=== PATIENT | male | born 1995 | race Caucasian/White ===

== ENCOUNTER 2016-09-14 22:55 | Emergency (ER) | payer OTHER ==
[~2016-09-14] VITALS: Ht 180.3 cm; Wt 68.4 kg
[2016-09-14 22:59] VITALS: TEMP 37.1; Ht 180.3 cm; Wt 68.4 kg
[2016-09-14] MEDS ORDERED: ONDANSETRON INJ 2 MG/ML 2 ML VIAL IV STA (23:12)
[2016-09-14] MEDS ORDERED: SODIUM CHLORIDE 0.9% 1000ML 1,000 ML IV STA (23:12)
[2016-09-14] MEDS ORDERED: MoRPHine SULFATE 10 MG/ML CARP/VIAL IV STA (23:12)
[2016-09-14] MEDS ORDERED: ACETAMINOPHEN 500 MG TAB PO STA (23:14)
[2016-09-14 23:20] LABS: BASO % 0.1 %; BASO ABS # 0.01 K/uL (0-0.2); COMPLETE YES; EOS % 0.2 %; HEMATOCRIT 46.5 % (42-52); IG% 0.1 %; LYMPH ABS # 0.41 K/uL (1.2-3.4); MEAN CELL VOLUME 85.6 fL (80-100); MEAN CORPUSCULAR HEMOGLOBIN 30.8 pg (25-34); MEAN CORPUSCULAR HGB CONC 35.9 g/dl (32-36); MONO % 4.4 %; NEUT % 91.2 %; PLATELET COUNT 188 K/uL (130-400); RED BLOOD COUNT 5.43 M/uL (4.7-6.1); WHITE BLOOD COUNT 10.34 K/uL (4.8-10.8)
--- NOTE | 2016-09-14 23:27 | EMERGENCY ROOM VISIT NOTE ---
History Report prepared by Vicki: Brea Mcfarland Under the Supervision of: Dr. Serjio Ewing M.D. First contact with patient: 23:07 Chief Complaint: ABDOMINAL PAIN Stated Complaint: STOMACH PAIN, BACK PAIN, VOMITING, SORE THROAT Nursing Triage Summary: Reports abdiminal pain, nausea since 1800 tonight History of Present Illness The patient is a 21 year old male who presents to the Emergency Room with complaints of constant abdominal pain beginning 5 hours ago. The patient states that his pain is in the center of his abdomen and radiates into his back. He complains of diarrhea, vomiting, sorethroat that started last night, nausea, and feeling hot. He denies any swelling in the legs, rash, fall or injury, and loss of consciousness. The patient notes that he has not taken his fever but thinks that he may have one. He states that he took Tylenol tonight and two people on his floor has been sick and vomiting. He reports that he has previously had appendicitis. Source of History: patient Onset: 5 hours ago Position: abdomen Timing: constant Associated Symptoms: + diarrhea, + nausea, + sorethroat, + vomiting, No LOC , No rash Note: He denies any swelling in the legs, fall or injury. Review of Systems See HPI for pertinent positives & negatives. A total of 10 systems reviewed and were otherwise negative. Past Medical & Surgical Medical Problems: (1) Appendicitis Family History No pertinent family history stated. Social History Smoking Status: Never Smoker Housing Status: lives with roommate Occupation Status: [employer] student Current/Historical Medications Scheduled Famotidine (Pepcid), 20 MG PO BID Allergies Coded Allergies: No Known Allergies (Unverified , 09/15/16) Physical Exam Vital Signs Date Time Temp Pulse Resp B/P Pulse Ox O2 Delivery O2 Flow Rate FiO2 09/15/16 01:39 67 16 105/56 96 09/15/16 00:40 67 16 104/63 97 Room Air 09/14/16 22:59 37.1 130 18 129/70 94 Room Air Physical Exam GENERAL: Patient is anxious appearing and in mild distress. HEENT: No acute trauma, normocephalic atraumatic, mucous membranes moist, no nasal congestion, no scleral icterus. NECK: No stridor, no adenopathy, no meningismus, trachea is midline. LUNGS: No dyspnea. Clear to auscultation and equal bilaterally. No wheeze, no rhonchi. HEART: Tachycardic rate and rhythm. No murmurs, rubs, gallops appreciated. ABDOMEN: Soft, bowel sounds positive, no masses appreciated, no peritonitis. Epigastric mild tenderness to palpation. BACK: No midline tenderness, no CVA tenderness EXTREMITIES: Normal motion all extremities, no cyanosis, no edema. NEUROLOGIC: Alert and oriented, no acute motor or sensory deficits, no focal weakness, cranial nerves grossly intact. SKIN: No rash, no jaundice, no diaphoresis. Medical Decision & Procedures ER Provider Diagnostic Interpretation: Radiology results and stated below per my review and radiologist interpretation: US RUQ: No gallstones or biliary ductal dilation. Limited visualization of the pancreas. Radiologist: Malissa Gutiérrez M.D. Laboratory Results 09/14/16 23:10 Red Blood Count 5.43, Mean Corpuscular Volume 85.6, Mean Corpuscular Hemoglobin 30.8, Mean Corpuscular Hemoglobin Concent 35.9, Mean Platelet Volume 10.0, Neutrophils (%) (Auto) 91.2, Lymphocytes (%) (Auto) 4.0, Monocytes (%) (Auto) 4.4, Eosinophils (%) (Auto) 0.2, Basophils (%) (Auto) 0.1, Neutrophils # (Auto) 9.44, Lymphocytes # (Auto) 0.41, Monocytes # (Auto) 0.45, Eosinophils # (Auto) 0.02, Basophils # (Auto) 0.01 09/14/16 23:10 Test 09/14/16 23:10 White Blood Count 10.34 K/uL (4.8-10.8) Red Blood Count 5.43 M/uL (4.7-6.1) Hemoglobin 16.7 g/dL (14.0-18.0) Hematocrit 46.5 % (42-52) Mean Corpuscular Volume 85.6 fL (80-100) Mean Corpuscular Hemoglobin 30.8 pg (25-34) Mean Corpuscular Hemoglobin Concent 35.9 g/dl (32-36) Platelet Count 188 K/uL (130-400) Mean Platelet Volume 10.0 fL (7.4-10.4) Neutrophils (%) (Auto) 91.2 % Lymphocytes (%) (Auto) 4.0 % Monocytes (%) (Auto) 4.4 % Eosinophils (%) (Auto) 0.2 % Basophils (%) (Auto) 0.1 % Neutrophils # (Auto) 9.44 K/uL (1.4-6.5) Lymphocytes # (Auto) 0.41 K/uL (1.2-3.4) Monocytes # (Auto) 0.45 K/uL (0.11-0.59) Eosinophils # (Auto) 0.02 K/uL (0-0.5) Basophils # (Auto) 0.01 K/uL (0-0.2) RDW Standard Deviation 38.8 fL (36.4-46.3) RDW Coefficient of Variation 12.4 % (11.5-14.5) Immature Granulocyte % (Auto) 0.1 % Immature Granulocyte # (Auto) 0.01 K/uL (0.00-0.02) Anion Gap 12.0 mmol/L (3-11) Est Creatinine Clear Calc Drug Dose 116.3 ml/min Estimated GFR () 128.1 Estimated GFR (Non- 110.5 BUN/Creatinine Ratio 15.9 (10-20) Calcium Level 9.2 mg/dl (8.5-10.1) Total Bilirubin 0.9 mg/dl (0.2-1) Direct Bilirubin 0.2 mg/dl (0-0.2) Aspartate Amino Transf (AST/SGOT) 11 U/L (15-37) Alanine Aminotransferase (ALT/SGPT) 19 U/L (12-78) Alkaline Phosphatase 84 U/L (45-117) Total Protein 7.9 gm/dl (6.4-8.2) Albumin 4.7 gm/dl (3.4-5.0) Lipase 106 U/L (73-393) Laboratory results as reviewed by me. Medications Administered Medications (Trade) Dose Ordered Sig/Marty Route Start Time Stop Time Status Last Admin Dose Admin Morphine Sulfate (MoRPHine SULFATE INJ) 6 mg NOW STAT IV 09/14/16 23:12 09/14/16 23:14 DC 09/14/16 23:22 6 MG Ondansetron HCl 4 mg 4 mg NOW STAT IV 09/14/16 23:12 09/14/16 23:14 DC 09/14/16 23:22 4 MG Sodium Chloride (Nss 1000ml) 1,000 ml @ 999 mls/hr Q1H1M STAT IV 09/14/16 23:12 09/15/16 00:12 DC 09/14/16 23:24 999 MLS/HR Acetaminophen (Tylenol Tab) 1,000 mg NOW STAT PO 09/14/16 23:14 09/14/16 23:15 DC 09/14/16 23:22 1,000 MG Ranitidine HCl (zANTac SYRUP) 150 mg NOW ONCE PO 09/15/16 01:00 09/15/16 01:01 DC 09/15/16 01:00 150 MG Miscellaneous Medication (Gi Cocktail) 24 ml NOW STAT PO 09/15/16 00:57 09/15/16 00:58 DC 09/15/16 00:57 24 ML Oxycodone HCl (Roxicodone Immediate Rel 5MG Home Pack) 1 homepack UD ONCE PO 09/15/16 01:00 09/15/16 01:01 DC 09/15/16 01:00 1 HOMEPACK Ondansetron HCl (ZOFRAN ODT 4MG Home Pack) 1 homepack UD ONCE PO 09/15/16 01:00 09/15/16 01:01 DC 09/15/16 01:00 1 HOMEPACK ED Course 2307: The patient was evaluated in room A4B. A complete history and physical exam was performed. 2312: Sodium Chloride 1000 ml @ 999 mls/hr, Zofran Inj 4mg IV, Morphine Sulfate 6mg IV. 2314: Tylenol Tab 1000mg PO. 0057: GI Cocktail 24ml PO. 0100: Ondansetron HCl 1 homepack PO, Oxycodone HCl 1 homepack PO, Zantac Syrup 150mg PO. 0103: I reevaluated the patient and discussed his test results. He is okay treating for possible gastritis or ulcer. 0105: Reevaluated the patient. Discussed results and discharge instructions: He verbalized understanding and agreement. The patient is ready for discharge. Medical Decision Differential: Cholecystitis, Gallbladder disfunction, Hepatic Disfunction, Gastritis/PUD, Pancreatitis, ACS, Aortic Pathology, amongst other pathologies entertained. 21 yr old male with acute epigastric pain. Nonsurgical abdomen by examination. No fevers and looks much improved with fluids and above. US unremarkable for GB. Labs unremarkable. He is stable and in no distress. No respiratory component. Suspect gastritis related thus will start pepcid, but given initial pain will given oxy ir to go home with just for next 12-24 hours. If no improvement to return for repeat evaluation in 24 hours. Stable and feeling well at discharge. Impression Primary Impression: Epigastric abdominal pain Scribe Attestation The scribe's documentation has been prepared under my direction and personally reviewed by me in its entirety. I confirm that the note above accurately reflects all work, treatment, procedures, and medical decision making performed by me. Departure Information Dispostion Home / Self-Care Prescriptions Famotidine (Pepcid) 20 Mg Tab 20 MG PO BID for 10 Days, #20 TAB Prov: Serjio Ewing M.D. 09/15/16 [facility] Forms HOME CARE DOCUMENTATION FORM, IMPORTANT VISIT INFORMATION Patient Instructions ED Epigastric Pain [facility], My [facility] Additional Instructions You have received a narcotic pain medication prescription. These medications may cause drowsiness and should not be used with other sedative medications. Do not drive, drink alcohol, perform dangerous activities, nor make important decisions after taking these medications. ferry terminal supervisor use or inappropriate use may lead to addiction. If pain is worsening or other concerning symptoms return for further evaluation. If no improvement in 24 hours return for repeat evaluation.
[2016-09-14 23:40] LABS: BUN/CREATININE RATIO 15.9 (10-20); CALCIUM 9.2 mg/dl (8.5-10.1); CREATININE 0.98 mg/dl (0.60-1.40); POTASSIUM 3.7 mmol/L (3.5-5.1)
[2016-09-15] MEDS ORDERED: GI COCKTAIL PO STA (00:57)
[2016-09-15] MEDS ORDERED: FAMO20TA11 PO (00:59)
[2016-09-15] MEDS ORDERED: RANITIDINE HCL SYRUP 150 MG/10 ML UDC PO ONE (01:00)
[2016-09-15] MEDS ORDERED: ONDANSETRON HOME PACK 4MG OD TAB PO ONE (01:00)
[2016-09-15] MEDS ORDERED: OXYCODONE IR HOME PACK PO ONE (01:00)
[2016-09-15] MEDS ORDERED: ALUMINUM/MAGNESIUM SUSP 30 ML UDC ONE (01:04)
[2016-09-15] MEDS ORDERED: LIDOCAINE HCL 2% VISC SOLN 20 ML UDC ONE (01:04)
[2016-09-15 01:39] VITALS: BP 105/56; PULSE 67; O2SAT 96
--- NOTE | 2016-09-15 06:41 | DIAGNOSTIC IMAGING REPORT ---
Right upper quadrant ultrasound GALLBLADDER-ABD LIMITED CLINICAL HISTORY: epigastric/RUQ pain pain. Nausea. TECHNIQUE: Real-time ultrasound COMPARISON STUDY: None FINDINGS: Normal gallbladder. Common bile duct 4 mm. Liver is uniform throughout. Pancreas and right kidney are unremarkable. IMPRESSION: Negative study Electronically signed by: Geovani Stallworth M.D. 09/15/2016 6:40 AM Dictated Date/Time: 09/15/2016 6:39 AM
== END 2016-09-15 01:40 | disposition home or self-care (01) ==
LOC: C.EDB 22:57 → C.EDA 09-15 01:40
DX: R10.13 Epigastric pain (principal)